=== PATIENT | female | born 1990 | race Caucasian/White ===

== ENCOUNTER 2017-04-14 07:25 | Emergency (ER) | payer SELFPAY ==
[~2017-04-14 07:25] MED LIST: BACTRIM DS TABL1 TA2 PO; NO MEDICATIONS
== END 2017-04-14 08:05 | disposition home or self-care (01) ==
LOC: SED 07:25
DX: K05.219 Aggressive periodontitis, localized, unspecified severity (principal); F17.210 Nicotine dependence, cigarettes, uncomplicated
CPT/HCPCS: 99283